=== PATIENT | female | born 1965 | race Two or more races ===

== ENCOUNTER 2018-02-15 23:18 | Emergency (ER) ==
[2018-02-15 23:33] VITALS: BP 100/63; TEMP 97.7; BMI 23.3
[2018-02-15] MEDS ORDERED: SODIUM CHLORIDE 1,000 ML IV STA (23:45)
--- NOTE | 2018-02-15 23:53 | ED.PDOC ---
General ED Provider: Dr. AUGUSTINE VAUGHAN Chief Complaint: Seizure Stated Complaint: Patient is a 52 year old female who is broguht by her who heard patient hit the floor in the bathroom. He reports that she was unresponvive and very rigid with a locked Jaw. She was out of about 3 min. She started coming around. She was incontinent of urine. She started waking up and the gave her some sweet tea since she has had hypoglycemic episodes in the past. She felt well but wanted her checked out today. She recently started taking quetiapine for insomina. Tonight was her 3rd dose. Time Seen by Physician: 00:02 Mode of Arrival: Walk-In Information Source: Patient Exam Limitations: No limitations Primary Care Provider: CHUN SPARROW Nursing and Triage Documentation Reviewed and Agree: Yes Does patient meet sepsis criteria?: Yes If yes, has appropriate treatment been initiated?: No System Inflammatory Response Syndrome: Not Applicable Sepsis Protocol: For patient's 13 years and over: Temp is 96.8 and below OR 101 and greater Pulse >90 BPM Resp >20/minute Acutely Altered Mental Status Are patient's symptoms suggestive of a new infection, such as: -Pneumonia -Skin, Soft Tissue -Endocarditis -UTI -Bone, Joint Infection -Implantable Device -Acute Abdominal Infection -Wound Infection -Meningitis -Blood Stream Catheter Infection -Unknown Neurological Complaint Exam - Seizure Complaint/Exam Onset/Duration: 10 pm Symptoms Are: Resolved Single or Multiple Episode: single episode lasted 3-5 mins Failed to Regain Consciousness: No Severity: Self-limited Location: All extremities Character: Generalized, Tonic-clonic Aggravating: Reports: Drug ingestion (new medications that could cause seizures ) Associated Signs and Symptoms: Reports: Anxiety, Bladder incontinence, Bowel incontinence, Apnea Related History: Denies: Similar episode, Pseudoseizures SAH Risk Factors: Reports: None Meningitis Risk Factors: Reports: None SDH Risk Factors: Reports: None Related Surgical History: Reports: None Carotid Bruit Present: No Cephalohematoma Present: No Tongue Bitten: No Neck Pain Present: No Glascow Coma Scale (see protocol): 15 Nystagmus Present: No Gag Reflex Present: No Speech: Present: Normal Findings Aphasia: Present: None Meningeal Signs Positive: No Focal Weakness: Present: None Focal Sensory Loss: Reports: None [id number]: Normal Findings Pronator Drift: Present: None Romberg Test Positive: No Babinski Sign: Negative Right, Negative Left Heel to Toe Normal: No Signs of Injury: Present: Normal findings Differential Diagnoses: Metabolic Disorder, Seizure, Seizure Disorder, Toxic Exposure Review of Systems - Review Of Systems Constitutional: Reports: No symptoms Eyes: Reports: No symptoms Ears, Nose, Mouth, Throat: Reports: No symptoms Respiratory: Reports: No symptoms Cardiac: Reports: No symptoms GI: Reports: No symptoms : Reports: No symptoms Musculoskeletal: Reports: No symptoms Skin: Reports: No symptoms Neurological: Reports: Anxiety, Headache, Tonic-Clonic seizures, Weakness Endocrine: Reports: No symptoms Hematologic/Lymphatic: Reports: No symptoms All Other Systems: Reviewed and Negative Past Medical History - Past Medical History Previously Healthy: Yes Endocrine: Reports: None Cardiovascular: Reports: None Respiratory: Reports: None Hematological: Reports: None Gastrointestinal: Reports: GERD Genitourinary: Reports: Kidney stones Neuro/Psych: Reports: Anxiety, Depression Musculoskeletal: Reports: None Cancer: Reports: None Last Menstrual Period: na Other Pertinent Past Medical History: Hypoglycemia - Surgical History General Surgical History: Reports: Hysterectomy - Family History Family History: Reports: Unknown - Social History Smoking Status: Never smoker Hx Substance Use: Yes ([facility]) Alcohol Screening: Occasionally - Immunizations Tetanus Shot up to Date: Yes Physical Exam - Physical Exam Appearance: Ill-appearing Ill-appearing: Mild Pain Distress: Mild (headache) Eyes: DARRYL, EOMI, Conjunctiva clear Neck: Supple Respiratory: Airway patent, Breath sounds clear, Breath sounds equal, Respirations nonlabored Cardiovascular: RRR, Pulses normal, No rub, No murmur GI/: Soft, Nontender, No masses, Bowel sounds normal, No Organomegaly Musculoskeletal: Normal strength, ROM intact, No edema, No calf tenderness Skin: Warm, Dry, Normal color Neurological: Sensation intact, Motor intact, Reflexes intact, Cranial nerves intact, Alert, Oriented Psychiatric: Anxious Interpretation - Radiology Interpretation Radiology Interpretation By: Radiologist Radiology Results: Negative Exam Interpreted: CT Scan - EKG Interpretation Time of EKG #1: 00:02 Rate: Normal Rhythm: Sinus Ectopy: None [place]: NL ST Segment: Normal Interpretation: no acute ischemia Critical Care Note - Critical Care Note Total Time (mins): 0 Course - Course Hematology/Chemistry: 02/15/18 23:50 02/15/18 23:50 Orders, Labs, Meds: Lab Review 02/15/18 02/15/18 02/15/18 23:50 23:50 23:50 WBC 5.20 RBC 3.94 L Hgb 11.5 L Hct 34.2 L MCV 86.8 MCH 29.2 MCHC 33.6 RDW Coeff of Jovita 13.7 Plt Count 175 Immature Gran % (Auto) 0.4 Neut % (Auto) 59.9 Lymph % (Auto) 27.5 [place] % (Auto) 8.1 Eos % (Auto) 3.3 Baso % (Auto) 0.8 Immature Gran # (Auto) 0.0 Neut # (Auto) 3.1 Lymph # (Auto) 1.4 [place] # (Auto) 0.4 Eos # (Auto) 0.2 Baso # (Auto) 0.0 Sodium 136 Potassium 4.0 Chloride 100 Carbon Dioxide 27 Anion Gap 13.0 BUN 9 Creatinine 0.81 Estimated GFR (MDRD) 74.00 BUN/Creatinine Ratio 11.11 Glucose 124 H Calcium 8.5 Total Bilirubin 0.2 AST 21 ALT 17 Alkaline Phosphatase 59 Total Protein 6.5 Albumin 3.5 Globulin 3.0 Albumin/Globulin Ratio 1.17 TSH 0.619 Urine Opiates Screen Ur Oxycodone Screen Urine Methadone Screen Ur Propoxyphene Screen Ur Barbiturates Screen U Tricyclic Antidepress Ur Phencyclidine Scrn Ur Amphetamine Screen U Methamphetamines Scrn U Benzodiazepines Scrn Urine Cocaine Screen U Cannabinoids Screen 02/16/18 00:36 WBC RBC Hgb Hct MCV MCH MCHC RDW Coeff of Jovita Plt Count Immature Gran % (Auto) Neut % (Auto) Lymph % (Auto) [place] % (Auto) Eos % (Auto) Baso % (Auto) Immature Gran # (Auto) Neut # (Auto) Lymph # (Auto) [place] # (Auto) Eos # (Auto) Baso # (Auto) Sodium Potassium Chloride Carbon Dioxide Anion Gap BUN Creatinine Estimated GFR (MDRD) BUN/Creatinine Ratio Glucose Calcium Total Bilirubin AST ALT Alkaline Phosphatase Total Protein Albumin Globulin Albumin/Globulin Ratio TSH Urine Opiates Screen Negative Ur Oxycodone Screen Negative Urine Methadone Screen Negative Ur Propoxyphene Screen Negative Ur Barbiturates Screen Negative U Tricyclic Antidepress Positive Ur Phencyclidine Scrn Negative Ur Amphetamine Screen Negative U Methamphetamines Scrn Negative U Benzodiazepines Scrn Negative Urine Cocaine Screen Negative U Cannabinoids Screen Positive Orders Category Date Time Status EKG-(ED ONLY) Stat CARDIO 02/15/18 23:44 Completed ED ACCUCHECK ASSESSMENT .ONCE EMERGENCY 02/15/18 23:42 Active ED IV/MEDIPORT/POWERPORT .ONCE EMERGENCY 02/15/18 23:45 Active CBC W/ AUTO DIFF Stat LAB 02/15/18 23:50 Completed COMPREHENSIVE METABOLIC PANEL Stat LAB 02/15/18 23:50 Completed DRUG SCREEN, URINE, RAPID Stat LAB 02/16/18 00:36 Completed TSH [THYROID STIMULATING HORMONE] Stat LAB 02/15/18 23:50 Completed 0.9 % Sodium Chloride [Saline Flush] MEDS 02/15/18 23:45 Discontinued 1 syr IVF PRN PRN Sodium Chloride 0.9% [Sodium Chloride] 1,000 ml MEDS 02/15/18 23:[address] HEAD W/O CONTRAST Stat RADS 02/15/18 23:42 Completed Medications Discontinued Medications Generic Name Dose Route Start Last Admin Trade Name Freq PRN Reason Stop Dose Admin Sodium Chloride 1,000 mls @ 1,000 mls/hr 02/15/18 23:45 02/16/18 00:34 Sodium Chloride IV 02/16/18 00:44 1,000 mls/hr BOLUS STA Administration Sodium Chloride 1 syr 02/15/18 23:45 02/16/18 00:34 Saline Flush IVF 1 syr PRN PRN Administration To flush IV Vital Signs: Temp Pulse Resp BP Pulse Ox 02/15/18 23:20 97.7 F 86 18 100/63 96 Departure - Departure Time of Disposition: 01:35 Disposition: HOME SELF-CARE Discharge Problem: Seizure Instructions: New Onset Absence Seizures in Adults (ED) Condition: Stable Pt referred to PMD for follow-up: Yes IPMP verified?: No Additional Instructions: Stop taking you quetiapine until you see you Doctor Follow up with PCP in 2-3 days Push fluids with electrolytes Return if worse Allergies/Adverse Reactions: Allergies No Known Allergies Allergy (Unverified 02/15/18 23:35) Home Medications: Ambulatory Orders Alprazolam [Xanax] 0.5 mg PO TID PRN 02/15/18 Fluvoxamine Maleate [Fluvoxamine Maleate ER] 200 mg PO DAILY 02/15/18 Magnesium Oxide [Magnesium] 500 mg PO DAILY 02/15/18 Quetiapine Fumarate 50 mg PO DAILY 02/15/18 Ranitidine HCl [Zantac 75] 75 mg PO DAILY 02/15/18 Disposition Discussed With: Patient, Family
--- NOTE | 2018-02-16 00:15 | CT ---
EXAM: CT head without contrast 02/15/2018. Sagittal and coronal reformatted images obtained HISTORY: Seizures COMPARISON: None. FINDINGS: There is no evidence of intracranial hemorrhage. The midline is maintained. There is no h ydrocephalus. No cerebellar tonsillar ectopia. Evaluation of the calvarium shows no fracture. Th e mastoid air cells are normally pneumatized. IMPRESSION: No acute intracranial abnormality.
== END 2018-02-16 01:35 | disposition home or self-care (01) ==
LOC: ED 23:18
DX: R56.9 Unspecified convulsions (principal); Z79.899 Other long term (current) drug therapy
CPT/HCPCS: 36415; 80053; 80306; 82962; 84443; 85025; 93005; 93010; 96360; 99283